=== PATIENT | male | born 1940 | race Caucasian/White ===

== ENCOUNTER 2017-02-18 17:37 | Emergency (ER) | payer OTHER, MEDICARE ==
--- NOTE | 2017-02-18 18:02 | CT REPORT ---
HISTORY: Slurred speech COMPARISON: None. TECHNIQUE: Axial non-contrast images obtained from skull vertex through foramen magnum. Dose reduction technique was utilized. FINDINGS: There is moderate motion artifact. The patient was scanned several times. The study is felt to be belgica gnostic. There is mild diffuse atrophy. There is mild to moderate patchy chronic white matter changes . There is no evidence for acute hemorrhage or infarction. No subdural or epidural collection, midlin e shift or mass effect. Skull is intact. Visualized paranasal sinuses and mastoid air cells are clear. IMPRESSION: Moderate motion artifact. Mild to moderate patchy chronic white matter changes and mild diffuse atrophy. No evidence for acute hemorrhage or infarction. Report called to Dr. Castano. Final Electronic Signature: This report was electronically signed by Jeff Siegel MD on 02/18/2017 6 :00 PM. christoph /
[2017-02-18 18:26] LABS: BASOPHILS 0.3 % (0.0-2.0); EOSINOPHILS 3.9 % (0.0-6.0); EOSINOPHILS# 0.2 X 10^3uL (0.0-0.4); HEMATOCRIT 41.3 % (42.0-54.0); HEMOGLOBIN 14.2 g/dL (14.0-18.0); LYMPHOCYTES 27.8 % (20.0-40.0); LYMPHOCYTES# 1.6 X 10^3uL (0.8-3.8); MEAN CELL VOLUME 91.9 fL (80.0-100.0); MEAN CORPUS. HGB CONCENTRATION 34.4 g/dL (32.0-36.0); MEAN CORPUSCULAR HEMOGLOBIN 31.6 pg (29.0-35.0); MEAN PLATELET VOLUME 12.3 fL (7.4-10.4); MONOCYTES 12.6 % (2.0-10.0); MONOCYTES# 0.7 X 10^3uL (0.2-1.0); NEUTROPHILS 55.4 % (54.0-75.0); NEUTROPHILS# 3.3 X 10^3uL (2.6-6.7); RED BLOOD COUNT 4.5 X 10^6uL (4.20-6.10); RED CELL DISTRIBUTION WIDTH 12.5 % (11.5-14.5); WHITE BLOOD COUNT 5.8 X 10^3uL (3.9-10.7)
[2017-02-18 18:31] LABS: BLOOD UREA NITROGEN 47 mg/dL (9-20); CHLORIDE 117 mmol/L (98-107); CREATININE 1.2 mg/dL (0.7-1.3); EST GLOMERULAR FILTRATION RATE > 60 mL/min; GLUCOSE 57 mg/dL (70-100); POTASSIUM 3.2 mmol/L (3.5-5.1); SODIUM 140 mmol/L (137-145)
[2017-02-18 18:33] LABS: CALCIUM 5.2 mg/dL (8.4-10.2)
[2017-02-18] MEDS ORDERED: DEXTROSE 50% WATER 50 ML IV ONE (19:03)
[2017-02-18] MEDS ORDERED: cefTRIAXone SODIUM 1,000 MG/10 ML VIAL ONE (19:08)
[2017-02-18] MEDS ORDERED: NORMAL SALINE 100 ML IV ONE (19:08)
[2017-02-18 19:15] LABS: URINE MUCUS NONE SEEN (Up to 25%)
[2017-02-18 19:35] LABS: URINE APPEARANCE SLIGHTLY CLOUDY; URINE COLOR YELLOW; URINE GLUCOSE NORMAL (NEGATIVE); URINE LEUKOCYTE ESTERASE 75 WBC/uL (2+) (NEGATIVE); URINE NITRITE NEGATIVE (NEGATIVE); URINE PROTEIN NEGATIVE (NEG - TRACE)
[2017-02-18 19:36] LABS: URINE BILIRUBIN NEGATIVE (NEGATIVE); URINE BLOOD TRACE (NEGATIVE); URINE KETONE NEGATIVE (NEGATIVE); URINE RBC 0-5/hpf (0-5/hpf); URINE SQUAMOUS EPITHELIAL CELL 0-5/hpf (<= 15/hpf); URINE UROBILINOGEN 0.2mg/dL (Normal) (NEG-1mg/dL)
[2017-02-18 20:30] LABS: ALBUMIN 2.5 g/dL (3.5-5.0); MAGNESIUM 1.5 mg/dL (1.6-2.3)
[2017-02-18] MEDS ORDERED: POTASSIUM CHLORIDE/NS 1,000 ML IV ONE (20:30)
[2017-02-18] MEDS ORDERED: CALCIUM CHLORIDE IV ONE (20:43)
[2017-02-18 20:45] LABS: CREATININE 1.8 mg/dL (0.7-1.3); IONIZED CALCIUM - EPMC 1.14 mmol/L (1.12-1.32); POTASSIUM 3.3 mmol/L (3.5-5.1)
[2017-02-18 20:57] LABS: LACTATE 0.8 mmol/L (0.7-2.1)
[2017-02-18 20:58] LABS: CALCIUM 7.5 mg/dL (8.4-10.2)
--- NOTE | 2017-02-18 21:15 | ER PHYSICIAN DOCUMENTATION ---
Physician Documentation [facility] Name:Tiago Robb Age:77 yrs Sex:Male :1940 Arrival Date:02/18/2017 Time:17:37 BedTrauma-A Private MD: Jh Abdi Disposition: 02/18/17 19:10 Transfer ordered to [facility]. Diagnosis is Encephalopathy. - Reason for transfer: Specialty. - Accepting physician is Dr. Newby. - Condition is Serious. - Problem is new. - Symptoms are unchanged. COBRA Form completed? Yes Transfer - Mode of Transportation Ambulance HPI: 02/18 18:30 This 77 yrs old Male presents to ER via EMS with complaints of S/S of jm Possible Stroke. 18:30 The patient's problem is reported as dysphasia. Onset: The symptom(s)/episode jm began/occurred today, woke up with it . Duration: This was a single incident, The episode is continuous. Context: the episode(s) was witnessed, by family, . Associated signs and symptoms: Pertinent positives: tremors and trouble speaking . Severity of symptoms: in the emergency department the symptoms are unchanged. 18:42 Patient's baseline: The patient has a previous history of MS, but normally pt is fully jm functional. . The patient has not experienced similar symptoms in the past. The patient has been recently seen by a physician: the patient's primary care provider, started on Risperdal, but this did not work. . Historical: - Allergies: Codeine; PENICILLINS; IODINEIODINE CONTAINING; Positive latex allergy; SULFA (SULFONAMIDES); - Home Meds: 1. Zoloft 100 mg oral tab 2 tabs once daily 2. baclofen 20 mg oral tab 1 tab for for itching 3. cetirizine 5 mg oral tab 1 tab once daily for itching 4. atorvastatin 80 mg oral tab 1/2 tab at bedtime 5. bisacodyl 5 mg oral tab 2 tabs twice a day as needed for Constipation 6. trazodone 100 mg oral tab 1 tab at bedtime 7. hydrochlorothiazide 12.5 mg oral tab 1 tab once daily 8. lisinopril 10 mg oral tab 1 tab once daily 9. albuterol sulfate 90 mcg/actuation inhalation HFAA 2 puffs as needed for Acute Asthma Attack 10. symbicort - PMHx: MULTIPLE SCLEROSIS; ASTHMA; DEPRESSION; insomnia; - PSHx: left shoulder; bladder extension; - Ebola Screening: : Patient negative for fever greater than or equal to 101.5 degrees Fahrenheit, and additional compatible Ebola Virus Disease symptoms. Patient denies exposure to infectious person. Patient denies travel to an Ebola-affected area in the 21 days before illness onset. No symptoms or risks identified at this time. . - Immunization history: Unable to Obtain. - Social history: Smoking status: Patient states was never smoker of tobacco. ROS: 18:52 Constitutional: Negative for fever. jm 18:52 Eyes: Negative for blurry vision, visual disturbance. 18:52 ENT: Negative for rhinorrhea, sinus congestion, sinus pain, sore throat. 18:52 Cardiovascular: Negative for chest pain, edema. 18:52 Respiratory: Negative for cough, shortness of breath. 18:52 Abdomen/GI: Negative for abdominal pain, nausea, vomiting, diarrhea. 18:52 : Positive for burning with urination. 18:52 MS/extremity: Negative for paresthesias, tenderness. 18:52 Neuro: Positive for altered mental status, speech changes, tremor. 18:52 Psych: Negative for anxiety, depression. Exam: 18:54 Constitutional: The patient appears alert, awake. 18:54 Head/face: Exam is negative for obvious evidence of injury or deformity. 18:54 Eyes: Periorbital structures: appear normal, Conjunctiva: normal. 18:54 Neck: Thyroid: appears normal, Trachea: is midline with no obvious abnormalities. 20:46 Neuro: Orientation: to person, place, Not oriented to time, situation, Mentation: able cd to follow commands, slow to respond, confused, Memory: unable to test, Cranial nerves: CN II- XII are normal as tested, Cerebellar function: unable to test, Motor: moves all fours, Sensation: unable to test, Gait: not tested. Vital Signs: 17:42 BP 123 / 75; Pulse 64; Resp 20; Pulse Ox 98% on R/A; Weight 58.97 kg; Height 5 ft. 8 rs in. (172.72 cm); Pain 0/10; 18:11 BP 121 / 73; Pulse 64; Resp 17; Pulse Ox 96% on R/A; Pain 0/10; rs 18:20 BP 126 / 75; Pulse 65; Resp 18; Pulse Ox 94% on R/A; Pain 0/10; rs 18:30 BP 108 / 71; Pulse 62; Resp 23; Pulse Ox 93% on R/A; Pain 0/10; rs 18:44 BP 122 / 65; Pulse 63; Resp 20; Pulse Ox 92% on R/A; Pain 0/10; rs 19:00 BP 109 / 64; Pulse 62; Resp 18; Pulse Ox 94% on R/A; Pain 0/10; rs 19:15 BP 110 / 72; Pulse 63; Resp 24; Pulse Ox 92% on R/A; Pain 0/10; rs 19:30 Temp 99.1; rs 19:56 BP 79 / 44; Pulse 59; Pulse Ox 94% on R/A; rs 19:58 BP 83 / 56; Pulse 65; Resp 17; Pulse Ox 96% on 2 lpm NC; Pain 0/10; rs 20:05 BP 91 / 76; Pulse 70; Resp 12; rs 17:42 Body Mass Index 19.77 (58.97 kg, 172.72 cm) rs Gerard Coma Score: 20:46 Eye Response: to voice(3). Verbal Response: confused(4). Motor Response: obeys cd commands(6). Total: 13. MDM: 17:40 Patient medically screened. 19:02 Differential diagnosis: CVA, metabolic disorder, drug effects. Data reviewed: vital jm signs, nurses notes, old medical records, lab test result(s), radiologic studies, and as a result, I will *Transfer Patient. Counseling: I had a detailed discussion with the patient and/or guardian regarding: the historical points, exam findings, and any diagnostic results supporting the discharge/admit diagnosis, lab results, the need to transfer to another facility, for higher level of care. Physician consultation: Adele Newby was called at 18:50, was contacted at 19:00, regarding tranfer. ED course: Pt w encephalopathy of various origins including , UTI, medication overdose (unintentional), metabolic disorders. Pt given IV Rocephin and IVF. Pt will need transfer as he has too many medical issues for us to handle in our facility. 21:10 ED course: The patient became hypotensive to 73/44 , non-diaphoretic with good color cd and not tachycardic at about 20:15 PM. Two large bore IV's were started, the patient was given a 500 ml NS IV Bolus with brought his BP up. His lab work was reviewed by me. His Hyponatremia (3.2) was corrected with one liter NS with 20 meq KCl over one hour. After half of that bolus was in he was given Calcium Chloride 10% 5 ml in 100 ml D5W over 15 minutes IVPB to correct his Ca of 5.4 . I ordered a Mg++ level, Albumin level, an I-Stat BMP and an Ionized Ca++ level. His Mg++ came back mildly low at 1.5, his Albumin was low at 2.5 and his Ionized Ca++ was in the normal range. His BMP showed improvement with the CO2 rising to 19 and K+ was 3.3 . We change has transfer to Helicopter transfer because of this Episode.. 02/18 18:22 Order name: INR W/ CAPI DRAW; Complete Time: 18:34 EDND 02/18 20:48 Interpretation: Normal. 02/18 18:28 Order name: CBC AUTO DIF, MDIF/RMOR IF IND; Complete Time: 18:34 EDMS 02/18 20:48 Interpretation: Normal. 02/18 18:34 Order name: BASIC METABOLIC PANEL; Complete Time: 20:45 EDND 02/18 20:48 Interpretation: Abnormal: POTASSIUM 3.2; CARBON DIOXIDE 16; GLUCOSE 57; Metabolic cd Acidosis, Hyperglycemia, Hypokalemia. 02/18 19:37 Order name: UA W/ MICRO -CULTURE IF IND; Complete Time: 20:16 EDND 02/18 20:48 Interpretation: Abnormal: URINE WBC 5-10/hpf; UTI. 02/18 20:31 Order name: MAGNESIUM; Complete Time: 20:45 EDND 02/18 20:48 Interpretation: Abnormal: MAGNESIUM 1.5; Hypomagnesemia. 02/18 20:31 Order name: ALBUMIN; Complete Time: 20:45 EDMS 02/18 20:48 Interpretation: Abnormal: ALBUMIN 2.5. 02/18 20:46 Order name: BASIC METABOLIC PANEL EDND 02/18 20:48 Interpretation: Abnormal: POTASSIUM 3.3; CARBON DIOXIDE 19; BLOOD UREA NITROGEN 57; cd CREATININE 1.8; Hypokalemia, Metabolic Acidosis, Chronic Renal Insufficiency. 02/18 20:46 Order name: IONIZED CALCIUM PANEL EDMS 02/18 20:47 Interpretation: Normal. 02/18 20:58 Order name: LACTATE [facility] 02/19 08:10 Order name: URINE CULTURE [facility] 02/20 10:21 Order name: NEGATIVE SENSITIVITY PANEL [facility] 02/18 17:57 Order name: CAT SCAN; HEAD W/O CON [id number] [facility] 02/18 18:04 Order name: CAT SCAN; HEAD W/O CON [id number]; Complete Time: 18:34 [facility] 02/18 20:49 Interpretation: Normal: See Report. 02/18 17:40 Order name: 12-lead EKG; Complete Time: 19:15 02/18 17:40 Order name: Continuous Cardiac Monitoring; Complete Time: 19:06 02/18 17:40 Order name: I & O; Complete Time: 19:06 02/18 17:40 Order name: NIH Stroke Scale 02/18 17:40 Order name: NPO; Complete Time: 19:06 02/18 17:40 Order name: Pulse Ox Continuous; Complete Time: 19:06 02/18 17:40 Order name: Stroke Team Activation Overhead; Complete Time: 19:06 02/18 19:10 Order name: Iv Saline Lock; Complete Time: 19:10 02/18 19:10 Order name: Fung; Complete Time: 19:11 02/18 20:16 Order name: IV large bore X 2; Complete Time: 20:27 02/18 20:24 Order name: Accucheck; Complete Time: 20:28 cd Dispensed Medications: Completed: Rocephin 1 grams IVPB once Completed: NS 0.9% 1000 ml 1000 ml IV at bolus in right hand once via [place] Tubing Completed: NS 0.9% 500 ml IV at bolus once 17:55 Drug: NS 0.9% 1000 ml; Volume: 1000 ml; Route: IV; Rate: bolus; Site: right hand; rs Delivery: [place] Tubing; 20:28 Follow up: IV Status: Completed infusion; IV Intake: 1000ml rs 18:45 Drug: D50W 50 ml; Route: IVP; Rate: bolus; Infused Over: 2 mins; Site: right hand; rs 19:51 Follow up: Response: No adverse reaction rs 19:00 Drug: Rocephin 1 grams; Volume: 100 ml; Route: IVPB; Rate: 200 ml/hr; Site: right hand; rs Delivery: IVPB Tubing; 19:51 Follow up: IV Status: Completed infusion; IV Intake: 100ml rs 19:51 Follow up: Response: No adverse reaction rs 20:18 CANCELLED (Physician Discretion): NS 0.9% 1000 ml IV at bolus once cd 20:20 Drug: NS with KCl 20 mEq/L 1000 ml/hr; Volume: 1000 ml; Route: IV; Rate: 1000 ml/hr; rs Infused Over: 1 hrs; Site: right antecubital; Delivery: [place] Tubing; 20:35 Drug: Calcium Chloride 5 ml; Volume: 100 ml; Route: IVPB; Rate: 400 ml/hr; Infused rs Over: 15 mins; Site: right hand; Delivery: IVPB Tubing; Point of Care Testing: Urine Dip: 18:17 pH: 6.0; ; Specific [place]: 1.015; Ketones: Negative; Glucose: Negative; Protein: rs Negative; Leukocytes: Positive; Nitrite: Negative ; Blood: Negative; Bilirubin: Negative ; Urobilinogen: NormalOther: cloudy yellow. per cath. Critical care time excluding procedures: 21:15 Critical care time: Bedside Care: 45 minutes, Consultation: 10 minutes, Family cd Intervention: 10 minutes. Total time: 65 minutes Signatures: Salome Echols RN RN Jh Ervin MD MD cd Meyer, John, MD MD
--- NOTE | 2017-02-18 21:15 | ER NURSING DOCUMENTATION ---
Nurse's Notes [facility] Name:Tiago Robb Age:77 yrs Sex:Male :1940 Arrival Date:02/18/2017 Time:17:37 BedTrauma-A Private MD: Diagnosis:Encephalopathy Presentation: 02/18 17:38 Presenting complaint: EMS states: Difficulty with speaking, and altered level of rs consciousness started yesterday evening. His thought it was due to a new medication, and that he might have taken too much (risperidone). Hx of UTIs and self caths. Transition of care: Home. Time Last Known Well for patient was Yesterday evening. An acute neurological deficit is present. Notified ED Physician of patient's arrival and CC Eyad Whitten notified. 17:38 Acuity: CAROLINE 2 rs 17:38 Method Of Arrival: EMS: 410 rs Triage Assessment: 19:15 The onset of the patients symptoms was more than six hours ago. General: Appears rs comfortable, well developed, well nourished, well groomed, Behavior is drowsy, flat, quiet. Pain: Unable to use pain scale. Neuro: Level of Consciousness is awake, lethargic, Oriented to person, Speech is slurred, with expressive aphasia noted, Facial symmetry appears normal, Pupils are PERRLA. Neuro:. Cardiovascular: No deficits noted. Capillary refill < 3 seconds Pulses are 3+ in right radial artery and left radial artery Rhythm is sinus rhythm. Respiratory: Airway is patent Respiratory effort is even, unlabored, Respiratory pattern is regular, symmetrical, Breath sounds are clear bilaterally. GI: No deficits noted. Abdomen is flat, non- distended Bowel sounds present X 4 quads. Abd is soft and non tender. :. Derm: Skin is dry, Skin is pale, Skin temperature is warm. Stroke Activation: Physician: ED Attending; Name: Eyad; Notified At: 17:30; Arrived At: Physician: big data lead; Name: Hayder; Notified At: 17:30; Arrived At: Physician: Insulation Applicator; Name: Kristyn; Notified At: 17:30; Arrived At: Physician: [not used]; Name: ; Notified At: ; Arrived At: Physician: [not used]; Name: ; Notified At: ; Arrived At: Historical: - Allergies: Codeine; PENICILLINS; IODINEIODINE CONTAINING; Positive latex allergy; SULFA (SULFONAMIDES); - Home Meds: 1. Zoloft 100 mg oral tab 2 tabs once daily 2. baclofen 20 mg oral tab 1 tab for for itching 3. cetirizine 5 mg oral tab 1 tab once daily for itching 4. atorvastatin 80 mg oral tab 1/2 tab at bedtime 5. bisacodyl 5 mg oral tab 2 tabs twice a day as needed for Constipation 6. trazodone 100 mg oral tab 1 tab at bedtime 7. hydrochlorothiazide 12.5 mg oral tab 1 tab once daily 8. lisinopril 10 mg oral tab 1 tab once daily 9. albuterol sulfate 90 mcg/actuation inhalation HFAA 2 puffs as needed for Acute Asthma Attack 10. symbicort - PMHx: MULTIPLE SCLEROSIS; ASTHMA; DEPRESSION; insomnia; - PSHx: left shoulder; bladder extension; - Ebola Screening: : Patient negative for fever greater than or equal to 101.5 degrees Fahrenheit, and additional compatible Ebola Virus Disease symptoms. Patient denies exposure to infectious person. Patient denies travel to an Ebola-affected area in the 21 days before illness onset. No symptoms or risks identified at this time. . - Immunization history: Unable to Obtain. - Social history: Smoking status: Patient states was never smoker of tobacco. Screenin:45 Nutritional screening: No deficits noted. rs 19:45 Infectious Disease Risk None. Abuse screen: Denies threats or abuse. rs Assessment: 20:00 Reassessment: [facility] CALLED FOR TRANSPORT PER DR FRANKLIN. rh 20:27 Reassessment: [facility] TO [facility]. rh 20:34 Reassessment: [facility] ARRIVAL . rh Vital Signs: 17:42 BP 123 / 75; Pulse 64; Resp 20; Pulse Ox 98% on R/A; Weight 58.97 kg; Height 5 ft. 8 rs in. (172.72 cm); Pain 0/10; 18:11 BP 121 / 73; Pulse 64; Resp 17; Pulse Ox 96% on R/A; Pain 0/10; rs 18:20 BP 126 / 75; Pulse 65; Resp 18; Pulse Ox 94% on R/A; Pain 0/10; rs 18:30 BP 108 / 71; Pulse 62; Resp 23; Pulse Ox 93% on R/A; Pain 0/10; rs 18:44 BP 122 / 65; Pulse 63; Resp 20; Pulse Ox 92% on R/A; Pain 0/10; rs 19:00 BP 109 / 64; Pulse 62; Resp 18; Pulse Ox 94% on R/A; Pain 0/10; rs 19:15 BP 110 / 72; Pulse 63; Resp 24; Pulse Ox 92% on R/A; Pain 0/10; rs 19:30 Temp 99.1; rs 19:56 BP 79 / 44; Pulse 59; Pulse Ox 94% on R/A; rs 19:58 BP 83 / 56; Pulse 65; Resp 17; Pulse Ox 96% on 2 lpm NC; Pain 0/10; rs 20:05 BP 91 / 76; Pulse 70; Resp 12; rs 17:42 Body Mass Index 19.77 (58.97 kg, 172.72 cm) rs [place] Coma Score: 20:46 Eye Response: to voice(3). Verbal Response: confused(4). Motor Response: obeys cd commands(6). Total: 13. ED Course: 17:38 Patient arrived in ED. ds 17:40 Tiago Castano MD is Attending Physician. jm 17:[address] dnn 17:43 Salome Echols, REBECCA is Primary Nurse. rs 17:45 Maintain field IV. Dressing intact. Good blood return noted. Site clean & dry. Gauge & rs site: 22 gauge . 17:45 CT done Labs ordered per protocol. Drawn by ED staff. rs 17:47 Valuables Remains with patient Patient has correct armband on for positive rs identification. Bed in low position. Call light in reach. Side rails up X2. Adult w/ patient. Cardiac Monitoring On for Nurse Monitoring only. Pulse Ox - RN Monitoring Only NIBP On - RN Monitoring Only. Door closed. Noise minimized. Verbal reassurance given. Warm blanket given. Diet: Patient is NPO. Family accompanied patient. 17:[address] moved back from CT. dnn 17:57 Triage completed. rs 17:57 CAT SCAN; HEAD W/O CON 70617 In Process Unspecified. EDMS 18:10 Patient moved back from radiology. zay 18:15 Fung cath inserted 16 Fr. Balloon inflated. To gravity drainage. Urine specimen rs collected. Clamped. returned cloudy urine. Patient tolerated well. 19:07 EKG done. (by ED staff). Reviewed by Tiago Castano MD. rh 20:10 Inserted peripheral IV: 20 gauge in right antecubital area. rs 20:15 Attending Physician role handed off by Tiago Castano MD cd 20:15 Jh Franklin MD is Attending Physician. cd Administered Medications: Completed: Rocephin 1 grams IVPB once Completed: NS 0.9% 1000 ml 1000 ml IV at bolus in right hand once via [place] Tubing Completed: NS 0.9% 500 ml IV at bolus once 17:55 Drug: NS 0.9% 1000 ml; Volume: 1000 ml; Route: IV; Rate: bolus; Site: right hand; rs Delivery: [place] Tubing; 20:28 Follow up: IV Status: Completed infusion; IV Intake: 1000ml rs 18:45 Drug: D50W 50 ml; Route: IVP; Rate: bolus; Infused Over: 2 mins; Site: right hand; rs 19:51 Follow up: Response: No adverse reaction rs 19:00 Drug: Rocephin 1 grams; Volume: 100 ml; Route: IVPB; Rate: 200 ml/hr; Site: right hand; rs Delivery: IVPB Tubing; 19:51 Follow up: IV Status: Completed infusion; IV Intake: 100ml rs 19:51 Follow up: Response: No adverse reaction rs 20:18 CANCELLED (Physician Discretion): NS 0.9% 1000 ml IV at bolus once cd 20:20 Drug: NS with KCl 20 mEq/L 1000 ml/hr; Volume: 1000 ml; Route: IV; Rate: 1000 ml/hr; rs Infused Over: 1 hrs; Site: right antecubital; Delivery: [place] Tubing; 20:35 Drug: Calcium Chloride 5 ml; Volume: 100 ml; Route: IVPB; Rate: 400 ml/hr; Infused rs Over: 15 mins; Site: right hand; Delivery: IVPB Tubing; Point of Care Testing: Urine Dip: 18:17 pH: 6.0; ; Specific [place]: 1.015; Ketones: Negative; Glucose: Negative; Protein: rs Negative; Leukocytes: Positive; Nitrite: Negative ; Blood: Negative; Bilirubin: Negative ; Urobilinogen: NormalOther: cloudy yellow. per cath. Intake: 19:51 IV: 100ml; Total: 100ml. rs 20:28 IV: 1000ml; Total: 1100ml. rs Outcome: 19:10 ER care complete, transfer ordered by MD. llamas 20:55 [facility] rs Acceptance Time: February 18, 2017 at 19:00 Patient's face sheet was faxed to accepting facility. Face Sheet included patient's name, address, age, gender, contact information and insurance information. Patient will be transported by: Report called to: Kailey FERNANDEZ at [facility] room 3321. Nurse and Physician Charting and Notes were sent to Accepting Facility. All tests and/or procedures with results, if applicable, were sent to accepting facility. 20:55 Condition: serious 20:55 Discharge instructions given to significant other, Instructed on need for transfer Demonstrated understanding of 21:11 Report given to Pt is now going [facility] ICU, report called to Jerod FERNANDEZ. rs 21:14 Patient left the ED. rs Signatures: Dispatcher [employer] Salome Johnson RN RN rs Srot, Korina, Reg Reg Jh Fernandez MD MD cd Meyer, John, MD MD jm Abbott, Jeff Linares Rachel
== END 2017-02-18 21:15 | disposition short-term general hospital (02) ==
LOC: ER 17:37
DX: G93.40 Encephalopathy, unspecified (principal); R47.02 Dysphasia; R41.82 Altered mental status, unspecified; R25.1 Tremor, unspecified; N39.0 Urinary tract infection, site not specified; B96.89 Other specified bacterial agents as the cause of diseases classified elsewhere; I95.9 Hypotension, unspecified; E87.1 Hypo-osmolality and hyponatremia; E87.6 Hypokalemia; E87.2 Acidosis; E83.42 Hypomagnesemia; R73.9 Hyperglycemia, unspecified; G35 Multiple sclerosis; J45.909 Unspecified asthma, uncomplicated; Z79.899 Other long term (current) drug therapy; Z74.3 Need for continuous supervision; Z46.6 Encounter for fitting and adjustment of urinary device
CPT/HCPCS: 36415; 51702; 70450; 80048; 81001; 82040; 82330; 83605; 83735; 85025; 85610; 87077; 87086; 87186; 93005; 99285; A0420; A0425; A0427; J0696; J3480